=== PATIENT | female | born 1975 | race Caucasian/White ===

== ENCOUNTER 2023-09-05 07:32 | Outpatient (CLI) | payer BC ==
[2023-09-05] MEDS ORDERED: GADOTERATE MEGLUMINE 10 MMOL/20 ML VIAL ONE (07:55)
--- NOTE | 2023-09-05 17:14 | MRI Report ---
PROCEDURE: Soft Tissue Neck W/WO INDICATIONS: NECK MASS CONTRAST: 16.4 [facility] TECHNIQUE: Sagittal/axial/coronal T1 spin echo and STIR. After the administration of contrast, axial/coronal/sa gittal T1 fast spin echo with fat saturation through the neck. COMPARISON: Correlation is made with ultrasound dated 08/24/2023. FINDINGS: Image quality: Excellent. Lymph nodes: No enlarged nodes are seen throughout the neck. Vessels: Visualized vasculature appears normal, with normal flow voids and enhancement. Neck spaces: At the site of the palpable abnormality, adjacent to the left sternoclavicular joint, t here is a multilobular focus seen that demonstrates increased signal on T2-weighted imaging and demon strates low signal on T1-weighted imaging. This can be seen on series 3 image 12 and on series 5 imag e 34. This process demonstrates moderate enhancement, as on series 9 image 4. The oropharynx, nasopharynx and pharynx are unremarkable, without mucosal lesions seen. Vocal cords, false vocal cords, pyriform sinuses, epiglottis, vallecula, and tongue base all appear normal. Glands: The parotid and submandibular glands appear normal. The thyroid is normal in size and there are no incidental findings. Miscellaneous: Visualized brain and orbits appear normal. Lung apices appear clear. Superficial so ft tissues appear normal. Visualized sinuses and mastoids appear clear. Bones: Marrow has normal overall signal. Focal left sphenoid sinus mucosal thickening is seen, with milder mucosal thickening seen elsewhere within the paranasal sinuses. Cervical spine degenerative ch anges are seen, which are worst at the C5-C6 level. Congenital fusion can be seen at the C6-C7 level. IMPRESSION: There is a multilobulated focus seen associated with the left sternal clavicular joint. This process is nonspecific, although an inflamed synovial cyst is considered to be the most likely. 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
[2023-09-05] MEDS: GADOTERATE MEGLUMINE 10 MMOL/20 ML VIAL IVP ONE (17:48)
== END 2023-09-05 07:33 | disposition home or self-care (01) ==
LOC: DI 07:32
PROVIDERS: ATTEND Nurse Practitioner Family
DX: R22.1 Localized swelling, mass and lump, neck (principal)
CPT/HCPCS: 70543; A9575